=== PATIENT | female | born 1990 | race Hispanic/Latino ===

== ENCOUNTER 2016-08-18 21:55 | Emergency (ER) | payer OTHER ==
[~2016-08-18] VITALS: Ht 162.6 cm; Wt 81.6 kg
[~2016-08-18 21:55] MED LIST: AMOXICILLIN500 M2 PO; AMOXICILLIN500 M3 PO; MAGIC MOUTH WASH PO; PREDNISONE20 M1 PO
--- NOTE | 2016-08-19 00:08 | ED GI/GU/ABDOMINAL COMPLAINT ---
History of Present Illness General Chief Complaint: Nausea, Vomiting, Diarrhea Stated Complaint: ABD PAIN, NAUSEA, VOMITING PER PT Source: patient Exam Limitations: no limitations Vital Signs & Intake/Output Vital Signs & Intake/Output Vital Signs Date Time Temp Pulse Resp B/P Pulse O2 O2 Flow FiO2 Ox Delivery Rate 08/18 2359 Room Air 08/18 2223 97.3 60 20 97/61 99 Room Air ED Intake and Output 08/19 0000 08/18 1200 Intake Total Output Total Balance Patient 180 lb Weight Allergies Coded Allergies: NO KNOWN ALLERGIES (02/29/16) Reconcile Medications No Known Home Medications Triage Note: RECEIVED 25 YO FEMALE C/O NAUSEA, VOMITING X 2 WITH ABDOMIN PAIN, STARTED THIS AFTER EATING AT THE MALL. Triage Nurses Notes Reviewed? yes ? N Is pt currently ? 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 They ate well at the mall. Shortly after work she became nauseous and began vomiting. Patient had one normal bowel movement. Patient is having crampy abdominal pain which is constant. The pain is in the left lower quadrant. There is no radiation. There are no aggravating or mitigating factors. She rates the pain as 4 out of 10. Patient has been unable to stop vomiting. Patient's coworker who also ate the same food that she did is now experiencing diarrhea. Denies any fevers or chills. Past History Travel History Traveled to [place] past 21 day No Medical History Any Pertinent Medical History? none Neurological: NONE EENT: NONE Cardiovascular: NONE Respiratory: NONE Gastrointestinal: NONE Hepatic: NONE Renal: NONE Musculoskeletal: NONE Psychiatric: NONE Endocrine: NONE Blood Disorders: NONE Cancer(s): NONE Surgical History Surgical History: non-contributory Psychosocial History What is your primary language Lao Tobacco Use: Never used ETOH Use: occasional use Illicit Drug Use: denies illicit drug use Family History Hx Contributory? No Review of Systems Review of Systems Constitutional: Reports: no symptoms. EENTM: Reports: no symptoms. Respiratory: Reports: no symptoms. Cardiovascular: Reports: no symptoms. GI: Reports: see HPI, abdominal pain, nausea, vomiting. Genitourinary: Reports: no symptoms. Musculoskeletal: Reports: no symptoms. Skin: Reports: no symptoms. Neurological/Psychological: Reports: no symptoms. Hematologic/Endocrine: Reports: no symptoms. Immunologic/Allergic: Reports: no symptoms. All Other Systems: Reviewed and Negative Physical Exam Physical Exam General Appearance: well developed/nourished, alert, awake, moderate distress Head: atraumatic, normal appearance Eyes: Bilateral: PERRL, EOMI. Ears, Nose, Throat, Mouth: hearing grossly normal, DRY MUCUS MEMBRANES Neck: normal inspection, supple, full range of motion Respiratory: normal breath sounds, chest non-tender, no respiratory distress, lungs clear Cardiovascular: regular rate/rhythm, normal peripheral pulses Gastrointestinal: normal bowel sounds, soft, non-tender, no organomegaly, NO REBOUND OR GUARDING Back: normal inspection Extremities: normal range of motion Neurologic/Psych: no motor/sensory deficits, awake, alert, oriented x 3, normal gait, normal mood/affect Skin: intact, normal color, warm/dry Core Measures ACS in differential dx? No Severe Sepsis Present: No Septic Shock Present: No Progress Differential Diagnosis: GASTROENTERITIS Plan of Care: Orders Procedure Date/time Status URINALYSIS 08/20 7 Active LIPASE 08/20 7 Complete HUMAN BETA HCG SCREEN 08/20 7 Complete COMPREHENSIVE METABOLIC PANEL 08/20 7 Complete CBC WITHOUT DIFFERENTIAL 08/20 7 Complete AMYLASE 08/20 7 Complete Laboratory Tests 08/19/16 0017: Anion Gap 7, Estimated GFR > 60, BUN/Creatinine Ratio 18.6, Glucose 89, Calcium 9.4, Total Bilirubin 0.3, AST 18, ALT 24, Alkaline Phosphatase 58, Total Protein 6.8, Albumin 4.1, Globulin 2.7, Albumin/Globulin Ratio 1.5, Amylase 58, Lipase 80, Total Beta HCG NEGATIVE, CBC w Diff NO MAN DIFF REQ, RBC 4.17 L, MCV 92.2, MCH 31.7 H, RDW 12.4, MPV 8.6, Gran % 57.4, Lymphocytes % 34.2, Monocytes % 7.0 , Eosinophils % 1.0, Basophils % 0.4, Absolute Granulocytes 5.5, Absolute Lymphocytes 3.3, Absolute Monocytes 0.7 H, Absolute Eosinophils 0.1, Absolute Basophils 0, PUBS MCHC 34.4 Initial ED EKG: none Departure Departure Disposition: HOME OR SELF CARE Condition: Stable Clinical Impression Primary Impression: Gastroenteritis Referrals: UNKNOWN (PCP/Family) Additional Instructions: Drink plenty of fluids. Return if symptoms worsen or for any concerns. Departure Forms: Customer Survey General Discharge Information Prescriptions: Current Visit Scripts Ondansetron (Zofran Odt) 1 TAB SL TID PRN NAUSEA #10 TAB
[2016-08-19 00:36] LABS: ABSOLUTE BASOPHIL COUNT 0 /CUMM (0.0-0.2); ABSOLUTE EOSINOPHIL COUNT 0.1 /CUMM (0.0-0.7); ABSOLUTE GRANULOCYTE CT 5.5 /CUMM (1.4-6.5); ABSOLUTE LYMPH COUNT 3.3 /CUMM (1.2-3.4); ABSOLUTE MONOCYTE COUNT 0.7 /CUMM (0.10-0.60); BASOPHIL % 0.4 % (0.0-2.0); GRANULOCYTE % 57.4 % (42.2-75.2); HEMATOCRIT 38.5 % (37-47); MEAN CORPUSCULAR HGB 31.7 PG (27.0-31.0); MEAN CORPUSCULAR HGB CONC 34.4 G/DL (33.0-37.0); MEAN CORPUSCULAR VOLUME 92.2 FL (81.0-99.0); MEAN PLATELET VOLUME 8.6 FL (7.4-10.4); PLATELET COUNT 214 /CUMM (130-400); RBC DISTRIBUTION WIDTH 12.4 % (11.5-14.5); RED BLOOD CELL CT 4.17 /CUMM (4.20-5.40); WHITE BLOOD CELL COUNT 9.6 /CUMM (4.8-10.8)
[2016-08-19] MEDS ORDERED: ZOFRAN ODT4 M1 SL (01:14)
[2016-08-19 01:30] VITALS: BP 102/67
== END 2016-08-19 01:30 ==
LOC: ERH 21:55
PROVIDERS: Emergency Medicine
DX: K52.9 Noninfective gastroenteritis and colitis, unspecified (principal); R19.7 Diarrhea, unspecified
CPT/HCPCS: 96374; J2405

== ENCOUNTER 2016-10-05 20:47 | Emergency (ER) | payer OTHER ==
[~2016-10-05] VITALS: Ht 162.6 cm; Wt 81.6 kg
[~2016-10-05 20:47] MED LIST changes: +ZOFRAN ODT4 M1 SL
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
[2016-10-05] MEDS ORDERED: PREDNISONE10 M2 PO (22:45)
[2016-10-05] MEDS ORDERED: IBUPROFEN800 M1 PO (22:45)
[2016-10-05 22:46] VITALS: BP 109/55
== END 2016-10-05 23:11 ==
LOC: ERH 20:47
DX: J06.9 Acute upper respiratory infection, unspecified (principal); Z87.891 Personal history of nicotine dependence

== ENCOUNTER 2017-12-11 23:33 | Emergency (ER) | payer OTHER ==
[~2017-12-11] VITALS: Ht 162.6 cm; Wt 77.1 kg
[~2017-12-11 23:33] MED LIST changes: +IBUPROFEN800 M1 PO; +PREDNISONE10 M2 PO
[2017-12-11 23:41] VITALS: BP 108/68
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
[2017-12-12] MEDS ORDERED: CYCLOBENZAPRINE10 M1 PO (00:45)
[2017-12-12] MEDS ORDERED: MOBIC15 M1 PO (00:45)
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
== END 2017-12-12 01:47 ==
LOC: ERH 23:33
DX: M54.2 Cervicalgia (principal)
CPT/HCPCS: 72050; 81025